=== PATIENT | male | born 1985 | race Two or more races ===

== ENCOUNTER 2019-10-23 09:08 | Emergency (ER) | payer MEDICAID ==
[~2019-10-23] VITALS: Ht 177.8 cm; Wt 96.2 kg
[2019-10-23 09:16] VITALS: BP 141/84
[2019-10-23] MEDS ORDERED: IBUPROFEN 800 MG TAB PO ONE (10:30)
[2019-10-23] MEDS ORDERED: cefTRIAXone SOD 1,000 MG VL IM ONE (10:30)
[2019-10-23] MEDS ORDERED: LIDOCAINE 1% HCL (LOCAL ANESTH.) INJ 20ML MDV IJ ONE (10:45)
== END 2019-10-23 11:03 | disposition home or self-care (01) ==
LOC: ER 09:15
DX: S61.240A Puncture wound with foreign body of right index finger without damage to nail, initial encounter (principal); M79.5 Residual foreign body in soft tissue; X58.XXXA Exposure to other specified factors, initial encounter; Y93.89 Activity, other specified; Y92.89 Other specified places as the place of occurrence of the external cause; Y99.8 Other external cause status
CPT/HCPCS: 96372; 99284; J0696; J2001